=== PATIENT | male | born 1970 | race American Indian/Alaskan Native ===

== ENCOUNTER 2016-07-31 09:44 | Inpatient (IN) | payer OTHER ==
[2016-07-31 10:28] LABS: Basophils % (Auto) 0.2 % (0.0-1.8); Eosinophils % (Auto) 3.8 % (0.0-4.3); Hematocrit 44.3 % (35.5-45.6); Hemoglobin 14.2 gm/dl (11.8-15.2); Mean Corpuscular HGB Conc 32 % (32-34); Mean Corpuscular Hemoglobin 31 pg (28-32); Mean Corpuscular Volume 95 fl (84-94); Platelet Count 265 K/mm3 (140-440); Red Blood Count 4.65 M/mm3 (3.65-5.03); Red Cell Distribution Width 13.8 % (13.2-15.2); White Blood Count 5.8 K/mm3 (4.5-11.0)
[2016-07-31 10:40] LABS: Anion Gap 17 mmol/L; BUN/Creatinine Ratio 10.66; Blood Urea Nitrogen 16 mg/dL (9-20); Calcium 8.8 mg/dL (8.4-10.2); Carbon Dioxide 30 mmol/L (22-30); Chloride 97.7 mmol/L (98-107); Glucose 148 mg/dL (75-100); Potassium 3.1 mmol/L (3.6-5.0); Sodium 142 mmol/L (137-145)
--- NOTE | 2016-07-31 10:52 | XRay Report ---
Chest 2 views: History: Shortness of breath. Findings: Borderline cardiomegaly. Trachea is midline. Unilateral mild pulmonary venous congestion with faint infiltrates right lung. Normal CP angles. Impression: Unilateral early pulmonary edema or pneumonia.
--- NOTE | 2016-07-31 12:14 | Emergency Department Report ---
HPI - General Chief Complaint: Dyspnea/Respdistress Time Seen by Provider: 07/31/16 11:56 - HPI HPI: Chief complaint: Shortness of breath, chest discomfort, leg swelling HPI: Patient is a 45-year-old male with a history of hypertension and takes Norvasc states for the last week she's been coughing up yellow reddish phlegm with intermittent shortness of breath and chest discomfort. Patient states he' s had emesis 2 in the last several days and had diarrhea 4 yesterday. Patient travels back and forth between [place] in [place] on the [employer] bus. He and was last on the bus 5 days ago for 2 days. Patient denies any pain to his lower extremities but does have new onset swelling [employer] [facility] Source: Patient and patient's sister Began: See above Duration: One week Context: See above Quality: Describes his chest pain as a discomfort Severity: 0 out of 10 Improved with: Nothing Worsened with: Nothing Associated signs and symptoms: See above ED Past Medical Hx - Past Medical History Previous Medical History?: No Hx Hypertension: Yes - Surgical History Past Surgical History?: No - Social History Smoking Status: Never Smoker Substance Use Type: None ED Review of Systems ROS: Stated complaint: SOB/COUGHING UP BLOOD Other details as noted in HPI ROS Constitutional: No fever ENT: No uri symptoms Cardiovascular: See HPI Respiratory: See HPI GI: See HPI : No dysuria frequency or urgency, Skin: No rash Neuro: No focal weakness or numbness Psych: No depression Seven/lymph: edema Physical Exam - Physical Exam Vital Signs: Vital Signs 07/31/16 09:53 Temperature 97.4 F L Pulse Rate 56 L Blood Pressure 158/97 O2 Sat by Pulse 95 Oximetry Physical Exam: GENERAL: The patient is well-developed well-nourished . HEENT: Normocephalic. Atraumatic. Extraocular motions are intact. Patient has moist mucous membranes. NECK: Supple. No meningitic signs are noted. There is no adenopathy noted. CHEST/LUNGS: Clear to auscultation. There is no respiratory distress noted. HEART/CARDIOVASCULAR: Regular. There is no tachycardia. There is a gallop rub , no murmur. ABDOMEN: Abdomen is soft, nontender. Patient has normal bowel sounds. There is no abdominal distention. SKIN: There is no rash. There is a lateral 1-2+ pedal edema. There is no diaphoresis. NEURO: The patient is awake, alert, and oriented. The patient is cooperative. The patient has no focal neurologic deficits. The patient has normal speech. MUSCULOSKELETAL: There is no tenderness or deformity. There is no limitation range of motion. There is no evidence of acute injury. ED Course Vital Signs 07/31/16 09:53 Temperature 97.4 F L Pulse Rate 56 L Blood Pressure 158/97 O2 Sat by Pulse 95 Oximetry - Reevaluation(s) Reevaluation #1: 07/31/16 15:02 Patient given 40 mEq of potassium by mouth ED Medical Decision Making - Lab Data Result diagrams: 07/31/16 10:11 07/31/16 10:11 - EKG Data -: EKG Interpreted by Me EKG shows normal: sinus rhythm (with frequent PVCs) - EKG Data When compared to previous EKG there are: previous EKG unavailable Interpretation: subendocardial ischemia (lateral T-wave inversion rule out ischemia), LVH - Radiology Data Radiology results: report reviewed (chest x-ray early pneumonia versus early CHF ) Critical care attestation.: If time is entered above; I have spent that time in minutes in the direct care of this critically ill patient, excluding procedure time. ED Disposition Clinical Impression: Hypokalemia Heart failure Qualifiers: Heart failure type: unspecified heart failure type Heart failure chronicity: acute Qualified Code(s): I50.9 - Heart failure, unspecified Chest pain Qualifiers: Chest pain type: unspecified Qualified Code(s): R07.9 - Chest pain, unspecified Disposition: OP ADMITTED IP TO THIS HOSP Is pt being admited?: No Does the pt Need Aspirin: No Condition: Fair Instructions: Chest Pain (ED) Referrals: PRIMARY CARE, [Primary Care Provider] - 3-5 Days Time of Disposition: 14:19 (admit to the hospitalist)
[2016-07-31] MEDS ORDERED: K-DUR PO ONE ×2 (13:07→15:00)
[2016-07-31] MEDS ORDERED: ZOFRAN IV PRN (14:29)
[2016-07-31] MEDS ORDERED: NITROSTAT SL PRN (14:29)
[2016-07-31] MEDS ORDERED: DULCOLAX PR PRN (14:29)
[2016-07-31] MEDS ORDERED: NORCO 5/325 PO PRN (14:29)
[2016-07-31] MEDS ORDERED: TYLENOL PO PRN (14:29)
[2016-07-31] MEDS ORDERED: MORPHINE IV PRN (14:29)
[2016-07-31] MEDS ORDERED: MILK OF MAGNESIA PO PRN (14:29)
--- NOTE | 2016-07-31 14:40 | History and Physical Report ---
History of Present Illness Date of examination: 07/31/16 Date of admission: 07-31-16 Chief complaint: sob cough History of present illness: pt 45 year old male that presents with a history of 3 days of shortness of breath. Patient maintains wheezing and productive cough. Patient is had acute bronchitis and asthma before. 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 Approximately 3 days ago return patient began having cough shortness of breath dyspnea on exertion but no fever. Patient's mother at bedside stated that they thought he had a cold. She was brought in workup of ED patient had chest x-ray which showed unilateral vascular congestion. Patient then called to admit for CHF. She denies any chest pain denied any denied any pain radiating down arm rating down jaw. She denies tobacco denies smoking. Denied any sick contacts. Patient also stayed along with his shortness of breath he had several episodes of diarrhea and nausea. Which is since resolved. He did feel like he had some constitutional symptoms as well. At present able to sit inside the bed and speaking full sentences and speak with mother. Past History Past Medical History: hypertension. denies: acute NH, atrial fib, arrhythmia, anemia, arthritis, CAD, cancer, COPD, diabetes, dialysis, DVT, ESRD, GERD, heart failure, hepatitis, HIV/AIDS, hyperthyroidism, hyperlipidemia, hypothyroidism, liver disease, migraines, PVD, pulmonary embolism, renal failure , seizures, stroke, sarcoidosis Past Surgical History: No surgical history Social history: single, Lives alone, full code. denies: smoking, alcohol abuse , prescription drug abuse, IV drug use Family history: no significant family history, hypertension Medications and Allergies Allergies Allergy/AdvReac Type Severity Reaction Status Date / Time No Known Allergies Allergy Unverified 07/31/16 09:53 Active Meds: Active Medications Acetaminophen (Tylenol) 650 mg PO Q4H PRN PRN Reason: Pain MILD(1-3)/Fever >100.5/MARQUIS Acetaminophen/Hydrocodone Bitart ([place] 5/325) 2 each PO Q6H PRN PRN Reason: Pain, Moderate (4-6) Albuterol/Ipratropium (Duoneb 0.5 Mg-3 Mg/3 Ml Soln) 1 ampul IH Q6HRT ASH Aspirin (Baby Aspirin) 81 mg PO QDAY ASH Bisacodyl (Dulcolax) 10 mg [place] QDAY PRN PRN Reason: Constipation unrelieved by [facility] Carvedilol (Coreg) 6.25 mg PO BID [facility] Docusate Sodium (Colace) 100 mg PO BID [facility] Enoxaparin Sodium (Lovenox) 40 mg SUB-Q QDAY [facility] Furosemide (Lasix) 20 mg IV BID@0600,1800 [facility] Lisinopril (Zestril) 10 mg PO QDAY [facility] Magnesium Hydroxide (Milk Of Magnesia) 30 ml PO Q4H PRN PRN Reason: Constipation Morphine Sulfate (Morphine) 2 mg IV Q4H PRN PRN Reason: Pain, Moderate (4-6) Nitroglycerin (Nitrostat) 0.4 mg SL .Q5MIN PRN PRN Reason: Chest Pain Ondansetron HCl (Zofran) 4 mg IV Q8H PRN PRN Reason: N/V unrelieved by Reglan Potassium Chloride (K-Dur) 40 meq PO ONCE [facility] Review of Systems Constitutional: weakness, no weight loss, no weight gain, no fever, no chills, no sweats, no night sweats, no anorexia, no fatigue, no malaise, no poor appetite, no daytime sleepiness, no chronic pain Ears, nose, mouth and throat: no ear discharge, no nasal congestion, no sinus pressure, no epistaxis, no dysphagia, no hoarseness, no sore throat, no swelling in mouth, no voice changes, no post-nasal drip, no neck fullness/ pressure Cardiovascular: edema, no chest pain, no orthopnea, no palpitations, no rapid/ irregular heart beat, no syncope, no lightheadedness, no phlebitis, no leg edema Respiratory: cough, cough with sputum, hemoptysis, shortness of breath, dyspnea on exertion, congestion, no excessive sputum, no wheezing, no pleurisy, no pain , no pain on inspiration, no snoring, no sleep apnea, no respiratory infections , no home oxygen Gastrointestinal: no abdominal pain, no nausea, no diarrhea, no constipation, no change in bowel habits, no coffee ground emesis, no hematochezia, no loss of appetite, no heartburn, no indigestion, no excessive gas Genitourinary Male: no flank pain, no urinary frequency, no nocturia, no genital pain, no impotence, no decreased libido, no testicular pain, no polyuria Rectal: no incontinence, no hemorrhoids, no discharge, no flatulence Musculoskeletal: no shooting arm pain, no arm numbness/tingling, no shooting leg pain, no hot joints, no muscle weakness, no muscle cramps, no myalgias, no atrophy, no loss of height, no prior amputations, no arthritis Integumentary: no rash, no sores, no wounds, no darkening of skin, no dryness, no brittle nails, no hirsutism, no foot/leg ulcers Neurological: no transient paralysis, no paralysis, no weakness, no parathesias , no numbness, no syncope, no headaches, no convulsions, no aphasia, no change in speech, no confusion, no motor disturbance, no sensory deficit, no double vision, no loss of vision Psychiatric: no sleep disturbances, no hallucinations, no paranoia, no depression, no anhedonia, no anxiety attacks, no difficulties concentrating, no irritability Endocrine: no heat intolerance, no polyphagia, no excessive thirst, no polydipsia, no polyuria, no increase in ring/shoe/hat size, no palpatations Hematologic/Lymphatic: no easy bleeding, no lymphadenopathy, no lymphedema Allergic/Immunologic: no urticaria, no wheezing, no angioedema Exam - Constitutional Vitals: Temp Pulse Resp BP Pulse Ox 98.4 F 101 H 16 142/107 94 07/31/16 13:40 07/31/16 13:40 07/31/16 13:41 07/31/16 13:40 07/31/16 13:40 General appearance: Present: no acute distress, well-nourished - EENT Eyes: Present: PERRL ENT: hearing intact, clear oral mucosa - Neck Neck: Present: supple, normal ROM - Respiratory Respiratory: bilateral: rales (bilateral), rhonchi (bilateral) - Cardiovascular Heart Sounds: Present: S1 & S2. Absent: rub, click - Extremities Extremities: pulses symmetrical, No edema Extremity abnormal: edema Peripheral Pulses: within normal limits - Abdominal General gastrointestinal: Present: soft, non-tender, non-distended, normal bowel sounds Male genitourinary: Present: normal - Integumentary Integumentary: Present: clear, warm, dry - Musculoskeletal Musculoskeletal: gait normal, strength equal bilaterally - Psychiatric Psychiatric: appropriate mood/affect, intact judgment & insight - Neurologic Neurologic: CNII-XII intact, moves all extremities Results - Labs CBC & Chem 7: 07/31/16 10:11 07/31/16 10:11 Labs: Laboratory Last Values WBC 5.8 K/mm3 (4.5-11.0) 07/31/16 10:11 RBC 4.65 M/mm3 (3.65-5.03) 07/31/16 10:11 Hgb 14.2 gm/dl (11.8-15.2) 07/31/16 10:11 Hct 44.3 % (35.5-45.6) 07/31/16 10:11 MCV 95 fl (84-94) H 07/31/16 10:11 MCH 31 pg (28-32) 07/31/16 10:11 MCHC 32 % (32-34) 07/31/16 10:11 RDW 13.8 % (13.2-15.2) 07/31/16 10:11 Plt Count 265 K/mm3 (140-440) 07/31/16 10:11 Lymph % (Auto) 9.8 % (13.4-35.0) L 07/31/16 10:11 [place] % (Auto) 9.3 % (0.0-7.3) H 07/31/16 10:11 Eos % (Auto) 3.8 % (0.0-4.3) 07/31/16 10:11 Baso % (Auto) 0.2 % (0.0-1.8) 07/31/16 10:11 Lymph # 0.6 K/mm3 (1.2-5.4) L 07/31/16 10:11 [place] # 0.5 K/mm3 (0.0-0.8) 07/31/16 10:11 Eos # 0.2 K/mm3 (0.0-0.4) 07/31/16 10:11 Baso # 0.0 K/mm3 (0.0-0.1) 07/31/16 10:11 Seg Neutrophils % 76.9 % (40.0-70.0) H 07/31/16 10:11 Seg Neutrophils # 4.4 K/mm3 (1.8-7.7) 07/31/16 10:11 D-Dimer 269.99 ng/mlDDU (0-234) H 07/31/16 12:44 Sodium 142 mmol/L (137-145) 07/31/16 10:11 Potassium 3.1 mmol/L (3.6-5.0) L 07/31/16 10:11 Chloride 97.7 mmol/L (98-107) L 07/31/16 10:11 Carbon Dioxide 30 mmol/L (22-30) 07/31/16 10:11 Anion Gap 17 mmol/L 07/31/16 10:11 BUN 16 mg/dL (9-20) 07/31/16 10:11 Creatinine 1.5 mg/dL (0.8-1.5) 07/31/16 10:11 Estimated GFR 51 ml/min 07/31/16 10:11 BUN/Creatinine Ratio 10.66 % 07/31/16 10:11 Glucose 148 mg/dL (75-100) H 07/31/16 10:11 Calcium 8.8 mg/dL (8.4-10.2) 07/31/16 10:11 Troponin T < 0.010 ng/mL (0.00-0.029) 07/31/16 10:11 NT-Pro-B Natriuret Pep 1730 pg/mL (0-450) H 07/31/16 10:11 - Imaging and Cardiology EKG: image reviewed, other (LVH multiple PVCs lip T waves.) Chest x-ray: image reviewed Assessment and Plan Advance Directives: Yes VTE prophylaxis?: Chemical Plan of care discussed with patient/family: Yes - Patient Problems (1) CHF (congestive heart failure) Current Visit: Yes Status: Acute Qualifiers: Congestive heart failure type: C Congestive heart failure chronicity: C Plan to address problem: Patient diagnosed with congestive heart failure. At present cannot completely rule out congestive heart failure secondary to slightly elevated d-dimer and a chest looks older shoals unilateral congestion on exam. Patient however on physical exam appears to be more acute bronchitis to me at this particular time. Patient has crackles and wheezing on expiration. And no significant crackles on inspiration. But does have some crackles throughout inspiratory and expiratory phase. Patient also has minimal lower extremity edema no JVD. And also his productive cough. Will bring in obtain echocardiogram will help define illness. Cardiology consult will obtain cardiac isoenzymes. Will obtain cardiology consult to assist with evaluation of systolic versus diastolic dysfunction. And current EKG changes consistent with LVH. His flip T waves. May eventually need stress tests. She had an extensive amount of disease states which is cause his early demise which require my direct attention. This took approximately 40 minutes in which 50% was spent with coordination of care in this critical patient. We went over EKG in detail because it was abnormal. 1 over chest x-ray. Over CT scan as well. Labs which make 5 data points. (2) HTN (hypertension) with goal to be determined Current Visit: Yes Status: Acute Plan to address problem: Hypertension go to be determined. Patient was not on any antihypertensives now. Since he does have a vague possibility to have congestive heart failure we 'll treat patient's blood pressure with NARAYAN inhibitor lisinopril and low-dose of Coreg as well. (3) Hypokalemia Current Visit: Yes Status: Acute Plan to address problem: Treated by mouth (4) Pneumonia Current Visit: Yes Status: Acute Qualifiers: Pneumonia type: P Aspiration pneumonia type: A Laterality: L Lung location: L Plan to address problem: Highly suspect patient may have pneumonia versus acute bronchitis. We'll treat with azithromycin 500 mg daily. We'll also add albuterol Atrovent nebulizes. Patient's chest x-ray shows unilateral congestion. Could be pneumonia as well. And we'll treat like we have pneumonia at this particular time. We'll obtain blood culture data if not have been done already in follow-up blood culture data. Would titrate our empiric antibodies accordingly. For now we'll treat with azithromycin. We'll add albuterol and Atrovent nebulizes every 6 hours and oxygen for supportive care. (5) Hyperglycemia Current Visit: Yes Status: Acute Plan to address problem: She gives a vague history of hyperglycemia therefore treat with sliding-scale insulin coverage.
[2016-07-31] MEDS ORDERED: NACL ONE (14:48)
[2016-07-31] MEDS ORDERED: K-DUR PO SCH (15:00)
[2016-07-31 15:29] LABS: Creatine Kinase MB 1.9 ng/mL (0.0-4.0)
[2016-07-31] MEDS ORDERED: ZITHROMAX 500 MG in NACL 0.9% 250ML 250 ML IV ONE (15:42)
[2016-07-31] MEDS: LASIX IV SCH (17:39)
--- NOTE | 2016-07-31 17:43 | Cat Scan Report ---
FINAL REPORT PROCEDURE: CT ANGIO CHEST TECHNIQUE: Computerized tomographic angiography of the chest was performed after the IV injection of iodinated nonionic contrast including image processing. The image data was postprocessed using 2-dimensional multiplanar reformatted (MPR) and 3-dimensional (MIP and/or volume rendered) techniques. HISTORY: Shortness of breath COMPARISON: No prior studies are available for comparison. FINDINGS: Heart and pericardium: The heart is moderately enlarged. Thoracic aorta: Normal caliber. Pulmonary vasculature: Normal. Lymph nodes: There are enlarged 12 millimeter short axis bilateral mediastinal nodes. There is a 11 millimeter right hilar lymph node present. Lungs: There are bilateral ground-glass and more dense airspace opacities, which may be related to infectious infiltrates or other etiologies, including pulmonary edema or inflammatory process. Pleural space: No effusion, thickening, or pneumothorax. Musculoskeletal structures: No significant abnormality. Upper abdominal structures: No significant abnormality. IMPRESSION: No evidence of pulmonary emboli. Bilateral pulmonary opacities may be related to pneumonia or other etiologies, including pulmonary edema or inflammatory process. Cardiomegaly.
[2016-07-31] MEDS: DUONEB 0.5 MG-3 MG/3 ML SOLN IH SCH (19:48)
[2016-07-31] MEDS: COLACE PO SCH (23:59)
[2016-08-01] MEDS: DUONEB 0.5 MG-3 MG/3 ML SOLN IH SCH ×4 (01:48→19:57)
[2016-08-01] MEDS: LASIX IV SCH ×2 (06:43→18:27)
[2016-08-01] MEDS: COLACE PO SCH ×2 (09:16→22:36)
[2016-08-01] MEDS: COREG PO SCH ×3 (09:16→22:36)
[2016-08-01] MEDS: BABY ASPIRIN PO SCH (09:16)
[2016-08-01] MEDS: LOVENOX SUB-Q SCH (09:16)
[2016-08-01] MEDS: ZESTRIL PO SCH (09:17)
--- NOTE | 2016-08-01 09:47 | Consultation ---
History of Present Illness Consult date: 08/01/16 Consult reason: shortness of breath History of present illness: 8 days history of shortness of breath and cough worse while lying down. Also lower extremity edema No previous history of heart disease History of hypertension on amlodipine at home Denies alcohol, tobacco or drug use Past History Past Medical History: hypertension. denies: acute [place], atrial fib, arrhythmia, anemia, arthritis, CAD, cancer, COPD, diabetes, dialysis, DVT, ESRD, GERD, heart failure, hepatitis, HIV/AIDS, hyperthyroidism, hyperlipidemia, hypothyroidism, liver disease, migraines, PVD, pulmonary embolism, renal failure , seizures, stroke, sarcoidosis Past Surgical History: No surgical history Social history: single, Lives alone, full code. denies: smoking, alcohol abuse , prescription drug abuse, IV drug use Family history: no significant family history, hypertension Medications and Allergies Allergies Allergy/AdvReac Type Severity Reaction Status Date / Time No Known Allergies Allergy Unverified 07/31/16 09:53 Active Meds: Active Medications Acetaminophen (Tylenol) 650 mg PO Q4H PRN PRN Reason: Pain MILD(1-3)/Fever >100.5/MARQUIS Acetaminophen/Hydrocodone Bitart ([place] 5/325) 2 each PO Q6H PRN PRN Reason: Pain, Moderate (4-6) Albuterol/Ipratropium (Duoneb 0.5 Mg-3 Mg/3 Ml Soln) 1 ampul IH Q6HRT [facility] Last Admin: 08/01/16 08:15 Dose: 1 ampul Aspirin (Baby Aspirin) 81 mg PO QDAY [facility] Last Admin: 08/01/16 09:16 Dose: 81 mg Bisacodyl (Dulcolax) 10 mg [place] QDAY PRN PRN Reason: Constipation unrelieved by MOM Carvedilol (Coreg) 6.25 mg PO BID [facility] Last Admin: 08/01/16 09:16 Dose: 6.25 mg Docusate Sodium (Colace) 100 mg PO BID [facility] Last Admin: 08/01/16 09:16 Dose: 100 mg Enoxaparin Sodium (Lovenox) 40 mg SUB-Q QDAY [facility] Last Admin: 08/01/16 09:16 Dose: 40 mg Furosemide (Lasix) 20 mg IV BID@0600,1800 [facility] Last Admin: 02/19/17 06:43 Dose: 20 mg Lisinopril (Zestril) 10 mg PO QDAY [facility] Last Admin: 08/01/16 09:17 Dose: Not Given Magnesium Hydroxide (Milk Of Magnesia) 30 ml PO Q4H PRN PRN Reason: Constipation Morphine Sulfate (Morphine) 2 mg IV Q4H PRN PRN Reason: Pain, Moderate (4-6) Nitroglycerin (Nitrostat) 0.4 mg SL .Q5MIN PRN PRN Reason: Chest Pain Ondansetron HCl (Zofran) 4 mg IV Q8H PRN PRN Reason: N/V unrelieved by Reglan Potassium Chloride (K-Dur) 40 meq PO ONCE [facility] Review of Systems All systems: negative Physical Examination Vital Signs Temp Pulse BP Pulse Ox 97.4 F L 56 L 158/97 95 07/31/16 09:53 07/31/16 09:53 07/31/16 09:53 07/31/16 09:53 General appearance: no acute distress HEENT: Positive: PERRL Neck: Positive: neck supple Cardiac: Positive: Reg Rate and Rhythm Lungs: Positive: Wheezes, Rhonchi Neuro: Positive: Grossly Intact Abdomen: Positive: Soft Extremities: Present: +1 Edema Results 07/31/16 10:11 07/31/16 10:11 Cardiac Enzymes 07/31/16 Range/Units 14:51 CK-MB (CK-2) 1.9 (0.0-4.0) ng/mL - EKG Interpretation EKG: sinus rhythm Assessment and Plan Shortness of breath Symptoms or orthopnea Elevated NT-PBNP Pulmonary edema on CXR Systemic Hypertension - uncontrolled Recommendations: Diuresis Afterload reduction and blood pressure control Echocardiogram to evaluate LVEF
--- NOTE | 2016-08-01 10:45 | Progress Note ---
Assessment and Plan Assessment and plan: Acute congestive heart failure. CT Chest shows bilateral opacities pulmonary edema vs pneumonia. Clinical picture suggests CHF. Echocardiogram ordered, not yet done.. started on Lasix iv. cardiology consulted Cough and shortness of breath. Acute bronchitis vs pneumonia. Hypertension. Resume home medications. DVT prophylaxis. Lovenox Full code status. History Interval history: Patient is 45 yo with hypertension, presents with shortness of breath and cough bilateral leg edema Hospitalist Physical - Physical exam Narrative exam: Gen. appearance: not in acute distress, obese HEENT: Normocephalic atraumatic, Neck: supple , no JVD Lungs: Bilateral rales, no wheezes. Heart: S1-S2 regular, no murmurs, rubs or gallop Abdomen:soft, non-tender, non-distended, normal bowel sounds Ext: Bilateral lower ext edema, no clubbing or cyanosis Neuro : Awake alert oriented 3, no focal neurological signs Psychiatry: normal mood Skin: no rashes - Constitutional Vitals: Temp Pulse Resp BP Pulse Ox 97.6 F 93 H 20 178/78 95 08/01/16 08:02 08/01/16 09:17 08/01/16 08:23 08/01/16 09:17 08/01/16 08:20 Results - Labs CBC & Chem 7: 08/02/16 09:24 08/02/16 05:40 Labs: Laboratory Last Values WBC 5.8 K/mm3 (4.5-11.0) 07/31/16 10:11 RBC 4.65 M/mm3 (3.65-5.03) 07/31/16 10:11 Hgb 14.2 gm/dl (11.8-15.2) 07/31/16 10:11 Hct 44.3 % (35.5-45.6) 07/31/16 10:11 MCV 95 fl (84-94) H 07/31/16 10:11 MCH 31 pg (28-32) 07/31/16 10:11 MCHC 32 % (32-34) 07/31/16 10:11 RDW 13.8 % (13.2-15.2) 07/31/16 10:11 Plt Count 265 K/mm3 (140-440) 07/31/16 10:11 Lymph % (Auto) 9.8 % (13.4-35.0) L 07/31/16 10:11 [place] % (Auto) 9.3 % (0.0-7.3) H 07/31/16 10:11 Eos % (Auto) 3.8 % (0.0-4.3) 07/31/16 10:11 Baso % (Auto) 0.2 % (0.0-1.8) 07/31/16 10:11 Lymph # 0.6 K/mm3 (1.2-5.4) L 07/31/16 10:11 [place] # 0.5 K/mm3 (0.0-0.8) 07/31/16 10:11 Eos # 0.2 K/mm3 (0.0-0.4) 07/31/16 10:11 Baso # 0.0 K/mm3 (0.0-0.1) 07/31/16 10:11 Seg Neutrophils % 76.9 % (40.0-70.0) H 07/31/16 10:11 Seg Neutrophils # 4.4 K/mm3 (1.8-7.7) 07/31/16 10:11 D-Dimer 269.99 ng/mlDDU (0-234) H 07/31/16 12:44 Sodium 142 mmol/L (137-145) 07/31/16 10:11 Potassium 3.1 mmol/L (3.6-5.0) L 07/31/16 10:11 Chloride 97.7 mmol/L (98-107) L 07/31/16 10:11 Carbon Dioxide 30 mmol/L (22-30) 07/31/16 10:11 Anion Gap 17 mmol/L 07/31/16 10:11 BUN 16 mg/dL (9-20) 07/31/16 10:11 Creatinine 1.5 mg/dL (0.8-1.5) 07/31/16 10:11 Estimated GFR 51 ml/min 07/31/16 10:11 BUN/Creatinine Ratio 10.66 % 07/31/16 10:11 Glucose 148 mg/dL (75-100) H 07/31/16 10:11 Calcium 8.8 mg/dL (8.4-10.2) 07/31/16 10:11 Total Creatine Kinase 173 units/L (55-170) H 07/31/16 14:51 CK-MB (CK-2) 1.9 ng/mL (0.0-4.0) 07/31/16 14:51 CK-MB (CK-2) Rel Index 1.0 (0-4) 07/31/16 14:51 Troponin T < 0.010 ng/mL (0.00-0.029) 07/31/16 10:11 NT-Pro-B Natriuret Pep 1730 pg/mL (0-450) H 07/31/16 10:11
[2016-08-01 21:15] LABS: BUN/Creatinine Ratio 14.37; Calcium 8.7 mg/dL (8.4-10.2); Chloride 97.5 mmol/L (98-107); Potassium 3.3 mmol/L (3.6-5.0)
[2016-08-02] MEDS: DUONEB 0.5 MG-3 MG/3 ML SOLN IH SCH ×4 (02:08→19:40)
[2016-08-02 06:30] LABS: BUN/Creatinine Ratio 14.37; Calcium 9.2 mg/dL (8.4-10.2); Chloride 97.4 mmol/L (98-107); Potassium 3.6 mmol/L (3.6-5.0)
[2016-08-02] MEDS: LASIX IV SCH ×2 (07:45→17:32)
[2016-08-02] MEDS ORDERED: PROVENTIL IH PRN (08:02)
--- NOTE | 2016-08-02 09:30 | Admit Criteria Form ---
Admission Criteria Documentation: HEART FAILURE Clinical Indications for Admission to Inpatient Care (Place 'X' for any and all applicable criteria): Admission is indicated by ANY ONE of the following(1)(2)(3)(4): [X]I. Severe electrolyte abnormalities requiring inpatient care(9) [ ]II. Hemodynamic instability [X]III. Anasarca [ ]IV. Acute cardiac ischemia causing or associated with failure (Also use Angina or Myocardial Infarction as appropriate) [ ]V. Cardiac arrhythmias of immediate concern [X]. Precipitating cause for acute decompensation (eg, pneumonia, pulmonary embolism) requires inpatient care [ ]VII. Pulmonary edema that is very severe (eg, mechanical ventilation needed, imminent or likely, need for 100% oxygen to keep oxygen saturation above 90%) [ ]VIII. Inpatient admission required rather than observation care (Also use Heart Failure: Observation Care as appropriate) because of ANY ONE of the following: [ ]a) Pulmonary edema that is severe or worsening as indicated by ALL of the following: [ ]i) New need for oxygen therapy to keep oxygen saturation above 90% (or increased FiO2 need from baseline) [ ]ii) Has not improved sufficiently with emergency department or observation care IV diuretics or other heart failure treatments[C] [ ]b) Cognitive impairment that is severe or persistent [ ]c) Increased creatinine (new on laboratory test) with reduction of more than 50% in estimated glomerular filtration rate from baseline. [ ]d) Acute renal insufficiency (progressively (ongoing) rising creatinine (known from past laboratory test) with reduction of more than 25% in estimated glomerular filtration rate from baseline) [ ]e) Acute peripheral ischemia (eg, pulseless, cool, mottled, or cyanotic extremity) [ ]f) Acute renal failure [ ]g) Supplemental O2 or respiratory treatment for >24 hr that are performable only in acute inpatient setting [ ]h) Pulmonary artery catheter monitoring [ ]i) Other condition, treatment or monitoring requiring inpatient admission [ ]IX. Contraindications and/or Inappropriate clinical situations for Observational Care in patients with Heart Failure, when ANY ONE of the following is required: [ ]a) Patient with High risk of cardiac embolism (e.g, patients with previous cardiac embolism, LVEF < 40%, age >75 and patients with prosthetic valve) 18 [ ]b) Patient with Moderate risk including DM patient, CAD and patient aged 65-75 [ ]c) Patient with any change in cardiac biomarker especially troponin should be managed as high risk in an inpatient setting 19 [ ]d) Physician judgement irrespective of ECG and other diagnostic findings 20 [ ]e) Patients with hyponatremia have high risk for mortality and require more extensive care and length of stay 21 [ ]f) Need for large volume diuresis 21 [ ]g) Presence of renal insufficiency or hypotension limiting speed of diuresis 21 [ ]h) Acute cardiac Ischemia in the elderly 21 [ ]i) Patients with a 30 day risk of mortality based on a multidimensional prognostic index (MPI) [J,]21 [ ]X. General contraindications and/or Inappropriate clinical situations for Observational Care in patients with Heart Failure, when ANY ONE of the following is required: [ ]a) Prediction of prolongation of LOS based on ANY ONE of the following may be considered as a contraindication for observational care 2, 3, 4, 5, 6, 7, 8 , 9, 10, 11 [ ]i) Age > 65 yrs. [ ]ii) Patient arriving by ambulance [ ]iii) Patient with high acuity [ ]iv) Patient requiring vital sign monitoring [ ]v) Patient on IV medication [ ]b) Systolic blood pressures 180mmHg 3,12 [ ]c) Patient with altered mental status including delirium and other alteration of consciousness, (3) [ ]d) Patient whose discharge disposition will be to a senior care home or rehabilitation home should not be managed in Emergency Department Observation Unit. CMS rule requires 3 days hospital stay before such placement.3,13 [ ]e) Patient with failure to thrive due to broad array of etiologies 3,16,17 [ ]f) Inability to ambulate 3,14 Extended stay beyond goal length of stay may be needed for(1)(3)(21)(25): [ ]a) Cardiac ischemia, confirmed or suspected as precipitant [ ]b) Cardiogenic shock or refractory pulmonary edema [ ]c) Acute kidney injury or renal failure [ ]d) Respiratory failure (eg, need for noninvasive or invasive mechanical ventilation) (23) [ ]e) Concomitant pneumonia or significant electrolyte abnormality (eg, severe hyponatremia) [ ]f) Newly diagnosed (new onset) atrial fibrillation [ ]g) Stage IV chronic kidney disease (estimated glomerular filtration rate of less than 30 mL/min/1.73m2 (0.50 mL/sec/1.73m2), and not previously on chronic dialysis The original [facility] content created by [employer] [facility] [employer] has been revised. The portions of the content which have been revised are identified through the use of italic text or in bold, and [employer] [facility] has neither reviewed nor approved the modified material. All other unmodified content is copyright [facility]. Please see references footnoted in the original [facility] edition 2016 Admission Criteria Met: Yes
[2016-08-02 09:51] LABS: Hematocrit 44.4 % (35.5-45.6); Hemoglobin 14.7 gm/dl (11.8-15.2); Mean Corpuscular HGB Conc 33 % (32-34); Mean Corpuscular Hemoglobin 31 pg (28-32); Mean Corpuscular Volume 95 fl (84-94); Platelet Count 278 K/mm3 (140-440); Red Blood Count 4.69 M/mm3 (3.65-5.03); Red Cell Distribution Width 13.6 % (13.2-15.2); White Blood Count 5.5 K/mm3 (4.5-11.0)
[2016-08-02] MEDS: COREG PO SCH ×2 (10:31→22:06)
[2016-08-02] MEDS: COLACE PO SCH ×2 (10:31→22:06)
[2016-08-02] MEDS: BABY ASPIRIN PO SCH (10:32)
[2016-08-02] MEDS: ZESTRIL PO SCH (10:32)
[2016-08-02] MEDS: LOVENOX SUB-Q SCH (10:33)
[2016-08-02] MEDS: LEVAQUIN 500MG/100ML 500 MG/100 ML BAG IV SCH (10:33)
--- NOTE | 2016-08-02 10:34 | Progress Note ---
Assessment and Plan Shortness of breath Pulmonary edema on CXR Systemic Hypertension Recommendations: Continue diuresis and afterload reduction. Echocardiogram to evaluate LVEF Subjective Date of service: 08/02/16 Interval history: Patient reports shortness of breath is less. Still with coughs. Objective Vital Signs Temp Pulse Pulse Pulse Resp Resp Resp 08/02/16 08:19 97.6 F 51 L 20 08/02/16 08:03 52 L 18 08/02/16 08:00 08/02/16 07:50 51 L 16 08/02/16 07:49 08/02/16 04:00 97.0 F L 56 L 18 08/02/16 03:10 97.9 F 54 L 18 08/02/16 02:20 49 L 16 08/02/16 02:08 50 L 18 08/01/16 22:00 98.0 F 51 L 18 08/01/16 20:17 47 L 19 08/01/16 20:02 08/01/16 20:00 50 L 20 08/01/16 16:01 97.3 F L 94 H 20 08/01/16 14:58 81 20 08/01/16 14:45 73 18 BP Pulse Ox 08/02/16 08:19 132/96 97 08/02/16 08:03 08/02/16 08:00 97 08/02/16 07:50 08/02/16 07:49 97 08/02/16 04:00 140/72 92 08/02/16 03:10 138/84 95 08/02/16 02:20 08/02/16 02:08 08/01/16 22:00 146/87 93 08/01/16 20:17 08/01/16 20:02 98 08/01/16 20:00 08/01/16 16:01 124/80 08/01/16 14:58 08/01/16 14:45 - Physical Examination General: No Apparent Distress HEENT: Positive: PERRL Neck: Positive: neck supple Cardiac: Positive: Reg Rate and Rhythm Lungs: Positive: Decreased Breath Sounds Neuro: Positive: Grossly Intact Abdomen: Positive: Soft Extremities: Present: +1 Edema - Labs and Meds CBC 08/02/16 Range/Units 09:24 WBC 5.5 (4.5-11.0) K/mm3 RBC 4.69 (3.65-5.03) M/mm3 Hgb 14.7 (11.8-15.2) gm/dl Hct 44.4 (35.5-45.6) % Plt Count 278 (140-440) K/mm3 Comprehensive Metabolic Panel 08/01/16 08/02/16 Range/Units 20:10 05:40 Sodium 140 140 (137-145) mmol/L Potassium 3.3 L 3.6 (3.6-5.0) mmol/L Chloride 97.5 L 97.4 L (98-107) mmol/L Carbon Dioxide 25 27 (22-30) mmol/L BUN 23 H 23 H (9-20) mg/dL Creatinine 1.6 H 1.6 H (0.8-1.5) mg/dL Glucose 228 H 195 H (75-100) mg/dL Calcium 8.7 9.2 (8.4-10.2) mg/dL - Imaging and Cardiology EKG: image reviewed, other (LVH multiple PVCs lip T waves.)
--- NOTE | 2016-08-02 10:42 | Progress Note ---
Assessment and Plan Assessment and plan: Acute systolic congestive heart failure. Echo EF 20-25%, dilated cardiomyopathy. CT Chest showed bilateral opacities: pulmonary edema vs pneumonia. Continue Lasix iv. Coreg po.Aspirin. Losartan added. he gets cough with Lisinopril. Cardiology following. Dilated cardiomyopathy. Cough and shortness of breath. Acute bronchitis vs pneumonia. Started levaquin since sputum greenish brown, witnessed by myself. Diabetes mellitus. Resume Insulin. Fingerstick blood glucose Qac and HS Hypertension. Resume home medications. DVT prophylaxis. Lovenox Full code status. History Interval history: Patient is 45 yo with diabetes, hypertension, presents with shortness of breath and cough bilateral leg edema Hospitalist Physical - Physical exam Narrative exam: Gen. appearance: not in acute distress, obese HEENT: Normocephalic atraumatic, Neck: supple , no JVD Lungs: Bilateral rales, no wheezes. Heart: S1-S2 regular, no murmurs, rubs or gallop Abdomen:soft, non-tender, non-distended, normal bowel sounds Ext: Bilateral lower ext edema, no clubbing or cyanosis Neuro : Awake alert oriented 3, no focal neurological signs Psychiatry: normal mood Skin: no rashes - Constitutional Vitals: Temp Pulse Resp BP Pulse Ox 97.6 F 103 H 20 155/102 97 08/02/16 08:19 08/02/16 10:31 08/02/16 08:19 08/02/16 10:31 08/02/16 08:19 General appearance: Present: no acute distress Results - Labs CBC & Chem 7: 08/02/16 09:24 08/02/16 05:40 Labs: Laboratory Last Values WBC 5.5 K/mm3 (4.5-11.0) 08/02/16 09:24 RBC 4.69 M/mm3 (3.65-5.03) 08/02/16 09:24 Hgb 14.7 gm/dl (11.8-15.2) 08/02/16 09:24 Hct 44.4 % (35.5-45.6) 08/02/16 09:24 MCV 95 fl (84-94) H 08/02/16 09:24 MCH 31 pg (28-32) 08/02/16 09:24 MCHC 33 % (32-34) 08/02/16 09:24 RDW 13.6 % (13.2-15.2) 08/02/16 09:24 Plt Count 278 K/mm3 (140-440) 08/02/16 09:24 Lymph % (Auto) 9.8 % (13.4-35.0) L 07/31/16 10:11 [place] % (Auto) 9.3 % (0.0-7.3) H 07/31/16 10:11 Eos % (Auto) 3.8 % (0.0-4.3) 07/31/16 10:11 Baso % (Auto) 0.2 % (0.0-1.8) 07/31/16 10:11 Lymph # 0.6 K/mm3 (1.2-5.4) L 07/31/16 10:11 [place] # 0.5 K/mm3 (0.0-0.8) 07/31/16 10:11 Eos # 0.2 K/mm3 (0.0-0.4) 07/31/16 10:11 Baso # 0.0 K/mm3 (0.0-0.1) 07/31/16 10:11 Seg Neutrophils % 76.9 % (40.0-70.0) H 07/31/16 10:11 Seg Neutrophils # 4.4 K/mm3 (1.8-7.7) 07/31/16 10:11 D-Dimer 269.99 ng/mlDDU (0-234) H 07/31/16 12:44 Sodium 140 mmol/L (137-145) 08/02/16 05:40 Potassium 3.6 mmol/L (3.6-5.0) 08/02/16 05:40 Chloride 97.4 mmol/L (98-107) L 08/02/16 05:40 Carbon Dioxide 27 mmol/L (22-30) 08/02/16 05:40 Anion Gap 19 mmol/L 08/02/16 05:40 BUN 23 mg/dL (9-20) H 08/02/16 05:40 Creatinine 1.6 mg/dL (0.8-1.5) H 08/02/16 05:40 Estimated GFR 57 ml/min 08/02/16 05:40 BUN/Creatinine Ratio 14.37 % 08/02/16 05:40 Glucose 195 mg/dL (75-100) H 08/02/16 05:40 POC Glucose 205 (70-105) H 08/01/16 14:43 Calcium 9.2 mg/dL (8.4-10.2) 08/02/16 05:40 Total Creatine Kinase 173 units/L (55-170) H 07/31/16 14:51 CK-MB (CK-2) 1.9 ng/mL (0.0-4.0) 07/31/16 14:51 CK-MB (CK-2) Rel Index 1.0 (0-4) 07/31/16 14:51 Troponin T < 0.010 ng/mL (0.00-0.029) 07/31/16 10:11 NT-Pro-B Natriuret Pep 1730 pg/mL (0-450) H 07/31/16 10:11
[2016-08-02] MEDS ORDERED: INSULIN REGULAR SC SCH (12:30)
[2016-08-02] MEDS ORDERED: INSULIN ISOPHANE SC SCH (12:30)
[2016-08-02] MEDS: NOVOLOG SUB-Q SCH ×3 (13:47→22:11)
[2016-08-02] MEDS: COZAAR PO SCH (14:32)
[2016-08-03] MEDS: DUONEB 0.5 MG-3 MG/3 ML SOLN IH SCH ×2 (01:56→08:31)
[2016-08-03 05:07] LABS: Hematocrit 41.2 % (35.5-45.6); Hemoglobin 13.7 gm/dl (11.8-15.2); Mean Corpuscular HGB Conc 33 % (32-34); Mean Corpuscular Hemoglobin 31 pg (28-32); Mean Corpuscular Volume 94 fl (84-94); Platelet Count 239 K/mm3 (140-440); Red Blood Count 4.38 M/mm3 (3.65-5.03); Red Cell Distribution Width 13.6 % (13.2-15.2); White Blood Count 4.4 K/mm3 (4.5-11.0)
[2016-08-03 05:21] LABS: Chloride 98.2 mmol/L (98-107)
[2016-08-03] MEDS: LASIX IV SCH (06:26)
[2016-08-03] MEDS ORDERED: K-DUR PO SCH (10:00)
[2016-08-03] MEDS ORDERED: LEXISCAN IV ONE ×2 (10:11→10:28)
[2016-08-03] MEDS: COLACE PO SCH (12:16)
[2016-08-03] MEDS: NOVOLOG SUB-Q SCH ×3 (12:16→12:35)
[2016-08-03] MEDS: BABY ASPIRIN PO SCH (12:17)
[2016-08-03] MEDS: COREG PO SCH (12:28)
[2016-08-03] MEDS: COZAAR PO SCH (12:29)
[2016-08-03] MEDS: LEVAQUIN 500MG/100ML 500 MG/100 ML BAG IV SCH (12:30)
[2016-08-03] MEDS: LOVENOX SUB-Q SCH (12:33)
[2016-08-03] MEDS ORDERED: DUONEB 0.5 MG-3 MG/3 ML SOLN IH SCH (14:00)
--- NOTE | 2016-08-03 14:50 | Progress Note ---
Assessment and Plan - Patient Problems (1) CHF (congestive heart failure) Current Visit: Yes Status: Acute Qualifiers: Congestive heart failure type: C Congestive heart failure chronicity: C Plan to address problem: Continue medical therapy for dilated nonischemic cardiomyopathy and chronic systolic heart failure. The patient is stable for cardiac discharge on medical therapy. Subjective Date of service: 08/03/16 Interval history: Patient is comfortable, shortness of breath and lower extremity edema resolving. He underwent a Persantine thallium stress test today, which showed dilated cardiomyopathy, with well-preserved perfusion, suggesting a nonischemic cardiomyopathy. Objective Vital Signs Temp Pulse Pulse Pulse Pulse Resp Resp 08/03/16 14:18 50 L 18 08/03/16 14:05 52 L 18 08/03/16 12:29 47 L 08/03/16 12:28 47 L 08/03/16 10:33 103 H 08/03/16 10:32 104 H 08/03/16 10:31 105 H 08/03/16 10:30 110 H 08/03/16 10:29 97 H 08/03/16 10:18 96 H 08/03/16 10:00 08/03/16 08:15 88 18 08/03/16 08:05 91 H 18 08/03/16 07:59 08/03/16 07:25 97.6 F 96 H 18 08/03/16 02:04 55 L 16 08/03/16 01:59 42 L 16 08/03/16 00:00 97.5 F L 95 H 20 08/02/16 22:06 100 H 08/02/16 21:31 97.3 F L 49 L 20 08/02/16 19:59 08/02/16 19:58 92 H 18 08/02/16 19:43 08/02/16 19:41 47 L 18 08/02/16 16:05 97.6 F 52 L 20 BP BP Pulse Ox 08/03/16 14:18 08/03/16 14:05 08/03/16 12:29 150/87 08/03/16 12:28 08/03/16 10:33 154/96 08/03/16 10:32 159/97 08/03/16 10:31 162/104 08/03/16 10:30 168/105 08/03/16 10:29 171/101 08/03/16 10:18 141/97 08/03/16 10:00 94 08/03/16 08:15 08/03/16 08:05 08/03/16 07:59 95 08/03/16 07:25 135/99 90 08/03/16 02:04 08/03/16 01:59 08/03/16 00:00 134/68 08/02/16 22:06 152/89 08/02/16 21:31 132/71 95 08/02/16 19:59 99 08/02/16 19:58 08/02/16 19:43 97 08/02/16 19:41 08/02/16 16:05 140/88 97 - Physical Examination General: No Apparent Distress HEENT: Positive: PERRL Neck: Positive: neck supple Cardiac: Positive: Reg Rate and Rhythm Lungs: Positive: clear to auscultation Neuro: Positive: Grossly Intact Abdomen: Positive: Soft Skin: Positive: Clear Extremities: Present: +1 Edema - Labs and Meds CBC 08/03/16 Range/Units 04:48 WBC 4.4 L (4.5-11.0) K/mm3 RBC 4.38 (3.65-5.03) M/mm3 Hgb 13.7 (11.8-15.2) gm/dl Hct 41.2 (35.5-45.6) % Plt Count 239 (140-440) K/mm3 Comprehensive Metabolic Panel 08/03/16 Range/Units 04:48 Sodium 140 (137-145) mmol/L Potassium 3.0 L (3.6-5.0) mmol/L Chloride 98.2 (98-107) mmol/L Carbon Dioxide 23 (22-30) mmol/L BUN 27 H (9-20) mg/dL Creatinine 1.8 H (0.8-1.5) mg/dL Glucose 115 H (75-100) mg/dL Calcium 9.0 (8.4-10.2) mg/dL - Imaging and Cardiology EKG: image reviewed, other (LVH multiple PVCs lip T waves.)
--- NOTE | 2016-08-03 15:13 | Progress Note ---
Assessment and Plan Assessment and plan: Acute systolic congestive heart failure. * Echo showed EF 20-25%, dilated cardiomyopathy. * CT Chest showed bilateral opacities: pulmonary edema vs pneumonia. * Continue Lasix iv. Coreg po.Aspirin and Losartan. he gets cough with Lisinopril. Cardiology following. Dilated cardiomyopathy * medical mx Cough and shortness of breath. * Acute bronchitis vs pneumonia. Started levaquin since sputum greenish brown Diabetes mellitus. * continue Insulin. Fingerstick blood glucose Qac and HS Hypertension. * continue current home medications. GABE * could be due to diuresis, reduce the dose of lasix, may need to d/c ACEI if Cr continue to decline * get renal US hypokalemia * replace and monitor * likely to lasix DVT prophylaxis. Lovenox Full code status. History Interval history: Patient seen and examined. Medical records and medication list reviewed. No acute event overnight noted by the RN. Patient denies any chest pain but has significant b/l leg swelling, no difficulty breathing on minimal exertion. Patient is tolerating diet. Discussed plan of care at bedside with patient. Hospitalist Physical - Physical exam Narrative exam: Gen. appearance: not in acute distress, obese HEENT: Normocephalic atraumatic, Neck: supple , no JVD Lungs: Bilateral rales, no wheezes. Heart: S1-S2 regular, no murmurs, rubs or gallop Abdomen:soft, non-tender, non-distended, normal bowel sounds Ext: Bilateral lower ext edema, no clubbing or cyanosis Neuro : Awake alert oriented 3, no focal neurological signs Psychiatry: normal mood Skin: no rashes - Constitutional Vitals: Temp Pulse Resp BP Pulse Ox 97.6 F 50 L 18 150/87 94 08/03/16 07:25 08/03/16 14:18 08/03/16 14:18 08/03/16 12:29 08/03/16 10:00 General appearance: Present: no acute distress Results - Labs CBC & Chem 7: 08/03/16 04:48 08/03/16 04:48 Labs: Laboratory Last Values WBC 4.4 K/mm3 (4.5-11.0) L 08/03/16 04:48 RBC 4.38 M/mm3 (3.65-5.03) 08/03/16 04:48 Hgb 13.7 gm/dl (11.8-15.2) 08/03/16 04:48 Hct 41.2 % (35.5-45.6) 08/03/16 04:48 MCV 94 fl (84-94) 08/03/16 04:48 MCH 31 pg (28-32) 08/03/16 04:48 MCHC 33 % (32-34) 08/03/16 04:48 RDW 13.6 % (13.2-15.2) 08/03/16 04:48 Plt Count 239 K/mm3 (140-440) 08/03/16 04:48 Lymph % (Auto) 9.8 % (13.4-35.0) L 07/31/16 10:11 [place] % (Auto) 9.3 % (0.0-7.3) H 07/31/16 10:11 Eos % (Auto) 3.8 % (0.0-4.3) 07/31/16 10:11 Baso % (Auto) 0.2 % (0.0-1.8) 07/31/16 10:11 Lymph # 0.6 K/mm3 (1.2-5.4) L 07/31/16 10:11 [place] # 0.5 K/mm3 (0.0-0.8) 07/31/16 10:11 Eos # 0.2 K/mm3 (0.0-0.4) 07/31/16 10:11 Baso # 0.0 K/mm3 (0.0-0.1) 07/31/16 10:11 Seg Neutrophils % 76.9 % (40.0-70.0) H 07/31/16 10:11 Seg Neutrophils # 4.4 K/mm3 (1.8-7.7) 07/31/16 10:11 D-Dimer 269.99 ng/mlDDU (0-234) H 07/31/16 12:44 Sodium 140 mmol/L (137-145) 08/03/16 04:48 Potassium 3.0 mmol/L (3.6-5.0) L 08/03/16 04:48 Chloride 98.2 mmol/L (98-107) 08/03/16 04:48 Carbon Dioxide 23 mmol/L (22-30) 08/03/16 04:48 Anion Gap 22 mmol/L 08/03/16 04:48 BUN 27 mg/dL (9-20) H 08/03/16 04:48 Creatinine 1.8 mg/dL (0.8-1.5) H 08/03/16 04:48 Estimated GFR 50 ml/min 08/03/16 04:48 BUN/Creatinine Ratio 15.00 % 08/03/16 04:48 Glucose 115 mg/dL (75-100) H 08/03/16 04:48 POC Glucose 130 (70-105) H 08/03/16 12:09 Calcium 9.0 mg/dL (8.4-10.2) 08/03/16 04:48 Total Creatine Kinase 173 units/L (55-170) H 07/31/16 14:51 CK-MB (CK-2) 1.9 ng/mL (0.0-4.0) 07/31/16 14:51 CK-MB (CK-2) Rel Index 1.0 (0-4) 07/31/16 14:51 Troponin T < 0.010 ng/mL (0.00-0.029) 07/31/16 10:11 NT-Pro-B Natriuret Pep 1730 pg/mL (0-450) H 07/31/16 10:11
[2016-08-03 18:20] VITALS: BP 156/106
--- NOTE | 2016-08-03 23:11 | Treadmill Report ---
THALLIUM STRESS TEST LEFT VENTRICLE: Left ventricle is severely dilated. Perfusion study demonstrates mild diaphragmatic attenuation artifact, otherwise fairly homogeneous uptake of the tracer in all segments. Gated analysis demonstrates severe left ventricular systolic dysfunction, ejection fraction 27%. CONCLUSION: Evidence of a dilated cardiomyopathy, with severe left ventricular systolic dysfunction. The perfusion study demonstrates a well preserved uptake of the tracer in all segments with no evidence of ischemia or infarction. Study suggests a nonischemic cardiomyopathy. Clinical correlation is recommended. JOB# [id number] CA/NTS
--- NOTE | 2016-08-04 07:31 | Ultrasound Report ---
ULTRASOUND RENAL BILATERAL HISTORY: Acute renal insufficiency. TECHNIQUE: transabdominal ultrasound with color Doppler interrogation. FINDINGS: The right kidney measures 11.0 x 4.8 x 5.3cm. Right renal cortex: 1.4cm. The left kidney measures 9.1 x 5.8 x 5.5cm. Left renal cortex: 1.5cm. Both kidneys are normal size, contour and position. The renal parenchyma is echogenic bilaterally but no evidence for cystic disease, mass, calculus, hydronephrosis or perinephric fluid. Images through the bladder are unremarkable. Color Doppler interrogation suggests decreased cortical perfusion in both kidneys. IMPRESSION: Normal size but slightly echogenic kidneys consistent with medical renal disease or acute renal failure. No focal renal lesion or hydronephrosis.
[2016-08-04] MEDS ORDERED: LASIX PO SCH (10:00)
--- NOTE | 2016-08-05 09:01 | Discharge Summary ---
Providers - Providers Date of Admission: 07/31/16 14:29 Date of discharge: 08/03/16 Attending physician: DANIELLE ARMSTRONG Primary care physician: JANNETTE RODRÍGUEZ MD Hospitalization Condition: Fair Hospital course: The patient presented with 8 days history of shortness of breath and cough worse while lying down. Also had lower extremity edema with No previous history of heart disease. He has History of hypertension on amlodipine at home. He had 2d echo showing 20 to 25% EF. He was getting managed for acute new onset systolic CHF exacerbation. His creatinine was getting higher needed further adjustment of the medication and stabilization of renal function. But he decided to leave AMA. Discharge Diagnosis: Acute systolic congestive heart failure. Dilated cardiomyopathy Acute bronchitis. Diabetes mellitus. Hypertension. GABE hypokalemia Disposition: LEFT AGAINST MEDICAL ADVICE Core Measure Documentation - Palliative Care Palliative Care/ Comfort Measures: Not Applicable - Core Measures Any of the following diagnoses?: heart failure - Heart Failure Discharge Requirements NARAYAN/ARB for LVSD if EF <40%: Yes Beta kaelyn at discharge: Yes Exam - Physical Exam Narrative exam: Gen. appearance: not in acute distress, obese HEENT: Normocephalic atraumatic, Neck: supple , no JVD Lungs: Bilateral rales, no wheezes. Heart: S1-S2 regular, no murmurs, rubs or gallop Abdomen:soft, non-tender, non-distended, normal bowel sounds Ext: Bilateral lower ext edema, no clubbing or cyanosis Neuro : Awake alert oriented 3, no focal neurological signs Psychiatry: normal mood Skin: no rashes - Constitutional Vitals: Temp Pulse Resp BP Pulse Ox 98.1 F 99 H 20 156/106 94 08/03/16 17:45 08/03/16 17:45 08/03/16 17:45 08/03/16 17:45 08/03/16 10:00 Plan Follow up with: PRIMARY CARE, [Primary Care Provider] - 3-5 Days Prescriptions: Aspirin [Aspirin BABY CHEW TAB] 81 mg PO QDAY #30 tab.chew Carvedilol [Coreg] 6.25 mg PO BID #60 tablet Furosemide [Lasix TAB] 40 mg PO QDAY #30 tablet NovoLIN 70/30 10 units SC BID 30 Days Potassium Chloride [K-Dur] 10 meq PO QDAY #30 tablet
== END 2016-08-03 18:30 | disposition left against medical advice (07) | DRG 291 ==
LOC: ED 09:44 → 3A 14:29
PROVIDERS: ADMIT Internal Medicine; ATTEND Internal Medicine
DX: I11.0 Hypertensive heart disease with heart failure (principal); J18.9 Pneumonia, unspecified organism; I50.23 Acute on chronic systolic (congestive) heart failure; I42.0 Dilated cardiomyopathy; E87.6 Hypokalemia; Z60.2 Problems related to living alone; Z82.49 Family history of ischemic heart disease and other diseases of the circulatory system; J20.9 Acute bronchitis, unspecified; E11.65 Type 2 diabetes mellitus with hyperglycemia; I34.0 Nonrheumatic mitral (valve) insufficiency; Z53.21 Procedure and treatment not carried out due to patient leaving prior to being seen by health care provider
CPT/HCPCS: 36415; 71020; 71275; 76770; 78452; 80048; 82550; 82553; 82962; 83880; 84484; 85025; 85027; 85379; 87040; 93005; 93010; 93017; 93306; 94640; 96365; A9502; J0456; J1650; J1815; J1940; J1956; J2785; J7050; Q9967